=== PATIENT | female | born 1940 | race Asian ===

== ENCOUNTER 2018-09-28 13:10 | Inpatient (IN) | payer MEDICARE, OTHER ==
[2018-09-28 13:32] VITALS: BP 138/90
[2018-09-28] MEDS ORDERED: Magnesium Hydroxide (MOM) 30 mL UDC PO PRN (14:09)
[2018-09-28] MEDS ORDERED: Maalox 30 mL Cup PO PRN (14:09)
[2018-09-28 17:04] LABS: % BASOPHILS 1.1 % (0.0-2.0); % EOSINOPHILS 3.7 % (0.0-5.0); % LYMPHOCYTES 38.6 % (20.0-50.0); % MONOCYTES 11.2 % (2.0-10.0); % NEUTROPHILS 45.4 % (40.0-80.0); BASOPHILE ABSOLUTE 0.1 Th/cumm (0-0.2); EOSINOPHILE ABSOLUTE 0.2 Th/cmm (0.1-0.4); HEMOGLOBIN 14.3 gm/dL (12-16); MEAN CELL VOLUME 92.2 fl (81-100); MEAN CORPUSCULAR HEMOGLOBIN 31.3 pg (27.0-31.0); MONOCYTE ABSOLUTE 0.6 Th/cmm (0.3-1.0); NEUTROPHILE ABSOLUTE 2.3 Th/cmm (1.8-8.0); PLATELET COUNT 228 Th/cmm (150-400); RED BLOOD COUNT 4.55 Mil/cmm (3.80-5.20); RED CELL DISTRIBUTION WIDTH 13.1 % (11.5-20.0); WHITE BLOOD COUNT 5.2 Th/cmm (4.8-10.8)
[2018-09-28 17:55] LABS: ALB/GLOB RATIO 1.5 (1.0-1.8); ALBUMIN 4.6 gm/dL (3.7-5.3); ALKALINE PHOSPHATASE 70 U/L (34-104); ANION GAP 13.5 (7.0-16.0); BILIRUBIN,TOTAL 1.1 mg/dL (0.3-1.0); BUN - UREA NITROGEN 14 mg/dL (7-25); CALCIUM SERUM 9.7 mg/dL (8.6-10.3); CHLORIDE 99 mEq/L (98-107); CHOLESTEROL 182 mg/dL (<200); CREATININE - SERUM 0.9 mg/dL (0.6-1.2); GLUCOSE 100 mg/dL (70-105); HDL -HIGH DENSITY LIPOPROTEIN 68 mg/dL (23-92); POTASSIUM SERUM 3.5 mEq/L (3.5-5.1); SGOT 30 U/L (13-39); SGPT/ALT 11 U/L (7-52); SODIUM SERUM 136 mEq/L (136-145); TOTAL PROTEIN,SERUM 7.7 gm/dL (6.0-8.3); TRIGLYCERIDES 103 mg/dL (<150)
[2018-09-28] MEDS: Verapamil HCl SR 120 mg Tab PO SCH (20:34)
[2018-09-28] MEDS ORDERED: VERAPAMIL HCL 120 MG PO SCH ×2 (21:00)
[2018-09-29 06:06] LABS: A1C 5.9 % (4.8-5.6)
--- NOTE | 2018-09-29 08:06 | Diagnostic Imaging Report ---
CHEST X-RAY: AP view INDICATION: pain COMPARISON: None FINDINGS: Mild chronic changes are noted. There is no focal consolidation or pleural effusions The heart is normal in size. Mildly tortuous aorta is noted. Atherosclerosis is noted. Degenerative changes of the spine are noted. IMPRESSION: No focal consolidation identified. Mild chronic lung changes are noted. Tortuous aorta with atherosclerosis..
[2018-09-29] MEDS: Multivitamin Tab PO SCH (08:34)
[2018-09-29] MEDS: Pantoprazole 40 mg EC Tab PO SCH (08:35)
--- NOTE | 2018-09-29 16:12 | Consultation ---
DATE OF CONSULTATION: INTERNAL MEDICINE CONSULT REASON FOR CONSULT: Medical management, history of hyperlipidemia/essential HTN, CAD. HISTORY OF PRESENT ILLNESS: The patient is a 78-year-old [place] female who was admitted to [facility] with acute ETOH intoxication, ALOC and suicidal ideations. The patient tells me that she has had issues with her daughter for many years, given that she her father and apparently they been arguing for many years, and have had a falling out on/off for many years. They had a discussion recently, making the patient very frustrated. The patient reports having multiple mixed drinks and passing out. Eventually she was seen by ex- looking altered and voicing suicidal thoughts. Patient was transferred to to the above-mentioned facility where she was admitted for acute alcohol intoxication. Given her suicidal ideation, she has been transferred to this facility for further management and care. She denies any major medical problems except for hyperlipidemia, but per notes, she also has a history of essential hypertension, acid reflux disease and a previous [place]/CAD. She states that she is currently feeling well and that she does not belong here. PAST MEDICAL HISTORY: As noted above. PAST SURGICAL HISTORY: None reported. FAMILY HISTORY: Noncontributory. SOCIAL HISTORY: Previous smoker-for 40 years. She reports about a pack a day. Alcohol, she admits to social drinking and not binge drinking. ALLERGIES: NKDA. OUTPATIENT MEDICATIONS: Ambien 10 mg at bedtime, Neurontin 300 mg t.i.d., Protonix 40 mg daily, Carafate 1 gram q.i.d., Effexor XR 150 daily and verapamil 120 mg daily. REVIEW OF SYSTEMS: CONSTITUTIONAL: Denies any fever, chills, any recent weight loss. CARDIOVASCULAR: Currently, no chest pain, no anginal type symptomatology. PULMONARY: She denies any shortness of breath or any cough, but when asked if she has COPD she was not sure. GASTROINTESTINAL: No bowel habit changes. GENITOURINARY: No bladder habit changes. NEUROLOGIC: No changes in vision. No headaches. PHYSICAL EXAMINATION: VITAL SIGNS: Temperature 97.7, pulse 65, respirations 18, BP 116/70, satting 94-98% on room air. GENERAL: Well-developed, well-nourished female, awake, alert and oriented x 3, not in acute distress. HEAD AND NECK: Normocephalic, atraumatic. Pupils are reactive to light. Extraocular movements are intact. Oropharynx is moist and clear. NECK: There is no JVD or LAD. CARDIAC: Regular rate and rhythm without any murmurs. LUNGS: She has got diminished breath sounds bilaterally with inspiratory and expiratory wheezing. No audible rhonchi or crackles noted. ABDOMEN: Soft, supple, nontender, nondistended, normoactive bowel sounds. LOWER EXTREMITIES: No pedal edema. NEUROLOGIC: Grossly intact, nonfocal. LABORATORY DATA: CBC was essentially within normal limits. Chem-7 was within normal limits. LFTs were essentially within normal limits. DIAGNOSTICS: Chest x-ray done on admission shows no focal consolidations. Mild chronic lung changes are noted. Assessment: 1. Acute psychotic decompensation with suicidal ideations. 2. Acute alcohol intoxication with altered level of consciousness. 3. History of coronary artery disease. 4. History of hyperlipidemia. 5. History of essential hypertension. 6. Likely chronic obstructive pulmonary disease. 7. Longstanding history of nicotine dependence. PLAN: The patient has been admitted to [facility] for further management and care. The patient will be kept on her current medications as scheduled. I did offer pulmonary supportive or pulmonary toilet p.r.n., but at this time she states that she is doing well. We will follow up on a daily basis. JOB# [id number] JOEL
[2018-09-29] MEDS: Verapamil HCl SR 120 mg Tab PO SCH (20:38)
--- NOTE | 2018-09-30 02:22 | Psychiatric Evaluation ---
DATE OF SERVICE: 09/29/2018 JUSTIFICATION FOR HOSPITALIZATION: The patient brought in on a hold, danger to self. CHIEF COMPLAINT: "I said I wanted to ." HISTORY OF PRESENT ILLNESS: A 78-year-old female currently in the hospital with long history of major depressive disorder. The patient was apparently verbalizing suicidal ideations, noted to be tearful, upset, noting discord with daughter, noting she was really feeling very desperate because of what was going on between her and the daughter. The patient is oriented to name, place, situation, month, year, alluding to fair sleep, fair appetite, really upset about being in the hospital, really upset about what is going on with daughter. PAST PSYCHIATRIC HISTORY: No suicide attempts, however, apparently the patient later on in the interview told me that after tensions with daughter, she drank too much alcohol and took two Ambien tablets, which "I never do," was apparently more confused, that is when the called the police. The patient denies any previous suicidal overdose, however, has a long history of Effexor use. FAMILY HISTORY: Noncontributory. SOCIAL HISTORY: Born in [facility]. Currently second , two adult children. The patient is living in [place]. The patient spends days volunteering at the [employer]. She is generally social and not working formally. Denies any drugs. MENTAL STATUS EXAMINATION: Stated age. Fair eye contact. Speech is within normal limits. Mood upset. Affect upset. Thought processes were linear, status post an overdose effort. Apparently, was verbalizing SI. She overdosed on the Ambien in combination with alcohol. No HI. No psychosis. Insight and judgment diminished. Impulse control is poor. PROVISIONAL DIAGNOSIS: Major depression, recurrent, severe, no psychosis. Under medical, please see full H and P. ESTIMATED LENGTH OF STAY: 6-8 days. FUNCTIONAL IMPAIRMENTS: None noted. ASSESSMENT: The patient requiring hospitalization, concerns for safety suicide, suicidality. TREATMENT PLAN: Includes group as well as milieu therapy. CONDITIONS FOR DISCHARGE: Improved mood, improved affect, cessation of any SI. JOB# [id number]
[2018-09-30] MEDS: Multivitamin Tab PO SCH (08:15)
[2018-09-30] MEDS: Pantoprazole 40 mg EC Tab PO SCH (08:20)
--- NOTE | 2018-09-30 09:25 | Internal Medicine Prog Note ---
Internal Medicine Subjective - Subjective Service Date: 09/30/18 (comfortable) Patient seen and examined:: without staff Patient is:: awake Per staff patient has:: no adverse event Internal Medicine Objective - Results Result Diagrams: 09/28/18 16:05 09/28/18 16:05 Recent Labs: Laboratory Last Values WBC 5.2 Th/cmm (4.8-10.8) 09/28/18 16:05 RBC 4.55 Mil/cmm (3.80-5.20) 09/28/18 16:05 Hgb 14.3 gm/dL (12-16) 09/28/18 16:05 Hct 42.0 % (41.0-60) 09/28/18 16:05 MCV 92.2 fl (81-100) 09/28/18 16:05 MCH 31.3 pg (27.0-31.0) H 09/28/18 16:05 MCHC Differential 34.0 pg (28.0-36.0) 09/28/18 16:05 RDW 13.1 % (11.5-20.0) 09/28/18 16:05 Plt Count 228 Th/cmm (150-400) 09/28/18 16:05 MPV 6.7 fl 09/28/18 16:05 Neutrophils % 45.4 % (40.0-80.0) 09/28/18 16:05 Lymphocytes % 38.6 % (20.0-50.0) 09/28/18 16:05 Monocytes % 11.2 % (2.0-10.0) H 09/28/18 16:05 Eosinophils % 3.7 % (0.0-5.0) 09/28/18 16:05 Basophils % 1.1 % (0.0-2.0) 09/28/18 16:05 Sodium 136 mEq/L (136-145) 09/28/18 16:05 Potassium 3.5 mEq/L (3.5-5.1) 09/28/18 16:05 Chloride 99 mEq/L (98-107) 09/28/18 16:05 Carbon Dioxide 27.0 mEq/L (21.0-31.0) 09/28/18 16:05 Anion Gap 13.5 (7.0-16.0) 09/28/18 16:05 BUN 14 mg/dL (7-25) 09/28/18 16:05 Creatinine 0.9 mg/dL (0.6-1.2) 09/28/18 16:05 Est GFR ( Amer) TNP 09/28/18 16:05 Est GFR (Non-Af Amer) TNP 09/28/18 16:05 BUN/Creatinine Ratio 15.6 09/28/18 16:05 Glucose 100 mg/dL (70-105) 09/28/18 16:05 Calcium 9.7 mg/dL (8.6-10.3) 09/28/18 16:05 Total Bilirubin 1.1 mg/dL (0.3-1.0) H 09/28/18 16:05 AST 30 U/L (13-39) 09/28/18 16:05 ALT 11 U/L (7-52) 09/28/18 16:05 Alkaline Phosphatase 70 U/L (34-104) 09/28/18 16:05 Total Protein 7.7 gm/dL (6.0-8.3) 09/28/18 16:05 Albumin 4.6 gm/dL (3.7-5.3) 09/28/18 16:05 Globulin 3.1 gm/dL 09/28/18 16:05 Albumin/Globulin Ratio 1.5 (1.0-1.8) 09/28/18 16:05 Triglycerides 103 mg/dL (<150) 09/28/18 16:05 Cholesterol 182 mg/dL (<200) 09/28/18 16:05 LDL Cholesterol Direct 89 mg/dL (75-193) 09/28/18 16:05 HDL Cholesterol 68 mg/dL (23-92) 09/28/18 16:05 - Physical Exam Vitals and I&O: Vital Signs Temp 97.5 F 09/30/18 05:57 Pulse 59 09/30/18 05:57 Resp 20 09/30/18 05:57 BP 102/58 09/30/18 05:57 Pulse Ox 98 09/30/18 05:57 Intake & Output 09/29/18 09/30/18 09/30/18 18:59 06:59 18:59 Intake Total 1200 300 Balance 1200 300 Intake: Oral 1200 300 Other: # Voids 4 2 # Bowel Movements 0 0 Active Medications: Current Medications Acetaminophen (Tylenol) 650 mg PO Q4HR PRN PRN Reason: Mild Pain / Temp above 100 Stop: 11/27/18 14:08 Al Hydrox/Mg Hydrox/Simethicone (Maalox) 30 ml PO Q4HR PRN PRN Reason: GI DISTRESS Stop: 11/27/18 14:08 Gabapentin (Neurontin) 300 mg PO TID LEONEL Stop: 11/27/18 20:59 Last Admin: 09/30/18 08:15 Dose: 300 mg Lidocaine HCl (Xylocaine Viscous 2%) 5 ml PO QID PRN PRN Reason: Mouth Sore Pain Stop: 11/27/18 15:40 Lorazepam (Ativan) 0.5 mg PO Q4HR PRN; Protocol PRN Reason: Anxiety Stop: 10/28/18 14:08 Magnesium Hydroxide (Milk Of Magnesia) 30 ml PO HS PRN PRN Reason: Constipation Multivitamins/Vitamin C (Theragran) 1 tab PO DAILY LEONEL Stop: 11/28/18 08:59 Last Admin: 09/30/18 08:15 Dose: 1 tab Pantoprazole Sodium (Protonix) 40 mg PO DAILY LEONEL Stop: 11/28/18 08:59 Last Admin: 09/30/18 08:20 Dose: 40 mg Sucralfate (Carafate) 1 gm PO QID LEONEL Stop: 11/27/18 16:59 Last Admin: 09/30/18 08:15 Dose: 1 gm Venlafaxine HCl (Effexor Xr) 150 mg PO DAILY [facility]; Protocol Stop: 11/28/18 08:59 Last Admin: 09/30/18 08:16 Dose: 150 mg Verapamil HCl (Calan Sr) 120 mg PO HS LEONEL Stop: 11/27/18 20:59 Last Admin: 09/29/18 20:38 Dose: 120 mg Zolpidem Tartrate (Ambien) 5 mg PO HS PRN PRN Reason: Insomnia Stop: 11/27/18 14:08 Last Admin: 09/29/18 20:39 Dose: 5 mg General: alert HEENT: NC/AT, PERRLA, EOMI Neck: Supple, No JVD, No thyromegaly, No LAD Lungs: wheezing, other (decreased at bases) Cardiovascular: RRR, Normal S1, Normal S2, without murmur Abdomen: soft, non-tender, positive bowel sound Extremities: clear Neurological: no change Internal Medicine Assmt/Plan - Assessment Assessment: ACUTE PSYCH DECOMPENSATION WITH SI ACUTE ETOH INTOXICATION-stable, with no s/sx of withdrawals. HISTORY OF HTN HISTORY OF HYPERCHOLESTEROLEMIA HISTORY OF CAD HISTORY OF NICOTINE DEPENDENCE HISTORY OF NICOTINE DEPENDENCE - Plan Plan: CONT WITH CURRENT YUMIKO-PSYCH SUPPORTIVE CARE CONT WITH OTHER MEDS SCHEDULED
[2018-09-30] MEDS: Verapamil HCl SR 120 mg Tab PO SCH (20:27)
--- NOTE | 2018-10-01 00:15 | Progress Notes ---
DATE: 09/30/2018 SUBJECTIVE: The patient is currently in the hospital, long history of depression, fleeting suicidal thoughts in the past, here because of suicidal ideations, discord with daughter, tension with daughter. The patient withdrawn, still depressed, melancholic appearing. She is noting she is feeling somewhat better and more optimistic, well oriented, linear, wants to go home, concerned about her , he is 86. The patient is still upset with daughter, trying to better things with the daughter, but not sure about what will happen. Fair sleep, fair appetite. PLAN: We will continue to monitor. The patient is doing fairly well currently on dosing of Effexor. JOB# [id number]
[2018-10-01] MEDS: Pantoprazole 40 mg EC Tab PO SCH (08:44)
[2018-10-01] MEDS: Multivitamin Tab PO SCH (08:44)
--- NOTE | 2018-10-01 12:13 | Internal Medicine Prog Note ---
Internal Medicine Subjective - Subjective Service Date: 10/01/18 (comfortable) Patient seen and examined:: without staff Patient is:: awake Per staff patient has:: no adverse event Internal Medicine Objective - Results Result Diagrams: 09/28/18 16:05 09/28/18 16:05 Recent Labs: Laboratory Last Values WBC 5.2 Th/cmm (4.8-10.8) 09/28/18 16:05 RBC 4.55 Mil/cmm (3.80-5.20) 09/28/18 16:05 Hgb 14.3 gm/dL (12-16) 09/28/18 16:05 Hct 42.0 % (41.0-60) 09/28/18 16:05 MCV 92.2 fl (81-100) 09/28/18 16:05 MCH 31.3 pg (27.0-31.0) H 09/28/18 16:05 MCHC Differential 34.0 pg (28.0-36.0) 09/28/18 16:05 RDW 13.1 % (11.5-20.0) 09/28/18 16:05 Plt Count 228 Th/cmm (150-400) 09/28/18 16:05 MPV 6.7 fl 09/28/18 16:05 Neutrophils % 45.4 % (40.0-80.0) 09/28/18 16:05 Lymphocytes % 38.6 % (20.0-50.0) 09/28/18 16:05 Monocytes % 11.2 % (2.0-10.0) H 09/28/18 16:05 Eosinophils % 3.7 % (0.0-5.0) 09/28/18 16:05 Basophils % 1.1 % (0.0-2.0) 09/28/18 16:05 Sodium 136 mEq/L (136-145) 09/28/18 16:05 Potassium 3.5 mEq/L (3.5-5.1) 09/28/18 16:05 Chloride 99 mEq/L (98-107) 09/28/18 16:05 Carbon Dioxide 27.0 mEq/L (21.0-31.0) 09/28/18 16:05 Anion Gap 13.5 (7.0-16.0) 09/28/18 16:05 BUN 14 mg/dL (7-25) 09/28/18 16:05 Creatinine 0.9 mg/dL (0.6-1.2) 09/28/18 16:05 Est GFR ( Amer) TNP 09/28/18 16:05 Est GFR (Non-Af Amer) TNP 09/28/18 16:05 BUN/Creatinine Ratio 15.6 09/28/18 16:05 Glucose 100 mg/dL (70-105) 09/28/18 16:05 Calcium 9.7 mg/dL (8.6-10.3) 09/28/18 16:05 Total Bilirubin 1.1 mg/dL (0.3-1.0) H 09/28/18 16:05 AST 30 U/L (13-39) 09/28/18 16:05 ALT 11 U/L (7-52) 09/28/18 16:05 Alkaline Phosphatase 70 U/L (34-104) 09/28/18 16:05 Total Protein 7.7 gm/dL (6.0-8.3) 09/28/18 16:05 Albumin 4.6 gm/dL (3.7-5.3) 09/28/18 16:05 Globulin 3.1 gm/dL 09/28/18 16:05 Albumin/Globulin Ratio 1.5 (1.0-1.8) 09/28/18 16:05 Triglycerides 103 mg/dL (<150) 09/28/18 16:05 Cholesterol 182 mg/dL (<200) 09/28/18 16:05 LDL Cholesterol Direct 89 mg/dL (75-193) 09/28/18 16:05 HDL Cholesterol 68 mg/dL (23-92) 09/28/18 16:05 - Physical Exam Vitals and I&O: Vital Signs Temp 98 F 10/01/18 06:18 Pulse 71 10/01/18 06:18 Resp 19 10/01/18 06:18 BP 119/65 10/01/18 06:18 Pulse Ox 98 10/01/18 06:18 Intake & Output 09/30/18 10/01/18 10/01/18 18:59 06:59 18:59 Intake Total 120 Balance 120 Intake: Oral 120 Other: # Voids 2 Stool Characteristics Soft Soft Active Medications: Current Medications Acetaminophen (Tylenol) 650 mg PO Q4HR PRN PRN Reason: Mild Pain / Temp above 100 Stop: 11/27/18 14:08 Al Hydrox/Mg Hydrox/Simethicone (Maalox) 30 ml PO Q4HR PRN PRN Reason: GI DISTRESS Stop: 11/27/18 14:08 Gabapentin (Neurontin) 300 mg PO TID LEONEL Stop: 11/27/18 20:59 Last Admin: 10/01/18 08:44 Dose: 300 mg Lidocaine HCl (Xylocaine Viscous 2%) 5 ml PO QID PRN PRN Reason: Mouth Sore Pain Stop: 11/27/18 15:40 Lorazepam (Ativan) 0.5 mg PO Q4HR PRN; Protocol PRN Reason: Anxiety Stop: 10/28/18 14:08 Magnesium Hydroxide (Milk Of Magnesia) 30 ml PO HS PRN PRN Reason: Constipation Multivitamins/Vitamin C (Theragran) 1 tab PO DAILY LEONEL Stop: 11/28/18 08:59 Last Admin: 10/01/18 08:44 Dose: 1 tab Pantoprazole Sodium (Protonix) 40 mg PO DAILY LEONEL Stop: 11/28/18 08:59 Last Admin: 10/01/18 08:44 Dose: 40 mg Sucralfate (Carafate) 1 gm PO QID LEONEL Stop: 11/27/18 16:59 Last Admin: 10/01/18 08:44 Dose: 1 gm Venlafaxine HCl (Effexor Xr) 150 mg PO DAILY LEONEL; Protocol Stop: 11/28/18 08:59 Last Admin: 10/01/18 08:44 Dose: 150 mg Verapamil HCl (Calan Sr) 120 mg PO HS LEONEL Stop: 11/27/18 20:59 Last Admin: 09/30/18 20:27 Dose: 120 mg Zolpidem Tartrate (Ambien) 5 mg PO HS PRN PRN Reason: Insomnia Stop: 11/27/18 14:08 Last Admin: 10/01/18 00:47 Dose: 5 mg General: alert HEENT: NC/AT, PERRLA, EOMI Neck: Supple, No JVD, No thyromegaly, No LAD Lungs: wheezing, other (decreased at bases) Cardiovascular: RRR, Normal S1, Normal S2, without murmur Abdomen: soft, non-tender, positive bowel sound Extremities: clear Neurological: no change Internal Medicine Assmt/Plan - Assessment Assessment: ACUTE PSYCH DECOMPENSATION WITH SI ACUTE ETOH INTOXICATION-stable, with no s/sx of withdrawals. HISTORY OF HTN HISTORY OF HYPERCHOLESTEROLEMIA HISTORY OF CAD HISTORY OF NICOTINE DEPENDENCE HISTORY OF NICOTINE DEPENDENCE - Plan Plan: CONT WITH CURRENT YUMIKO-PSYCH SUPPORTIVE CARE CONT WITH OTHER MEDS SCHEDULED
[2018-10-01] MEDS: Verapamil HCl SR 120 mg Tab PO SCH ×2 (20:52→20:54)
--- NOTE | 2018-10-01 21:27 | Progress Notes ---
DATE: 10/01/2018 SUBJECTIVE: A 78-year-old female currently in the hospital, noted severe tearful, crying today, feels that she has disappointed her family, status post an overdose effort, concerns about the suicide effort, mostly withdrawn, keeps to self, angry, upset, fair sleep, and fair appetite. ASSESSMENT: The patient remains symptomatic. Ongoing safety concerns given ongoing mood symptoms, tearfulness, melancholy, and social withdrawal. On a positive note, good family support. We will continue to monitor err on the side of caution and initiate a 14-day hold. [facility]# [id number]
[2018-10-02] MEDS: Multivitamin Tab PO SCH (10:12)
[2018-10-02] MEDS: Pantoprazole 40 mg EC Tab PO SCH (10:13)
--- NOTE | 2018-10-02 18:32 | Progress Notes ---
DATE: 10/02/2018 The patient remains withdrawn, mostly melancholic, depressed appearing, status post an overdose. Concerns there was a suicide effort, mostly keeping to herself, anxious. She has improving. Thoughts of self-harm dissipating, decreasing. We will continue to monitor on an inpatient basis. She is currently on a 14-day hold. Currently on dosing of Effexor, seems to be tolerating well. She is noting that her family is supportive. [facility]# [id number]
[2018-10-02] MEDS: Verapamil HCl SR 120 mg Tab PO SCH (21:29)
--- NOTE | 2018-10-02 23:57 | Internal Medicine Prog Note ---
Internal Medicine Subjective - Subjective Service Date: 10/02/18 (no events) Patient is:: awake Per staff patient has:: no adverse event Internal Medicine Objective - Results Result Diagrams: 09/28/18 16:05 09/28/18 16:05 Recent Labs: Laboratory Last Values WBC 5.2 Th/cmm (4.8-10.8) 09/28/18 16:05 RBC 4.55 Mil/cmm (3.80-5.20) 09/28/18 16:05 Hgb 14.3 gm/dL (12-16) 09/28/18 16:05 Hct 42.0 % (41.0-60) 09/28/18 16:05 MCV 92.2 fl (81-100) 09/28/18 16:05 MCH 31.3 pg (27.0-31.0) H 09/28/18 16:05 MCHC Differential 34.0 pg (28.0-36.0) 09/28/18 16:05 RDW 13.1 % (11.5-20.0) 09/28/18 16:05 Plt Count 228 Th/cmm (150-400) 09/28/18 16:05 MPV 6.7 fl 09/28/18 16:05 Neutrophils % 45.4 % (40.0-80.0) 09/28/18 16:05 Lymphocytes % 38.6 % (20.0-50.0) 09/28/18 16:05 Monocytes % 11.2 % (2.0-10.0) H 09/28/18 16:05 Eosinophils % 3.7 % (0.0-5.0) 09/28/18 16:05 Basophils % 1.1 % (0.0-2.0) 09/28/18 16:05 Sodium 136 mEq/L (136-145) 09/28/18 16:05 Potassium 3.5 mEq/L (3.5-5.1) 09/28/18 16:05 Chloride 99 mEq/L (98-107) 09/28/18 16:05 Carbon Dioxide 27.0 mEq/L (21.0-31.0) 09/28/18 16:05 Anion Gap 13.5 (7.0-16.0) 09/28/18 16:05 BUN 14 mg/dL (7-25) 09/28/18 16:05 Creatinine 0.9 mg/dL (0.6-1.2) 09/28/18 16:05 Est GFR ( Amer) TNP 09/28/18 16:05 Est GFR (Non-Af Amer) TNP 09/28/18 16:05 BUN/Creatinine Ratio 15.6 09/28/18 16:05 Glucose 100 mg/dL (70-105) 09/28/18 16:05 Calcium 9.7 mg/dL (8.6-10.3) 09/28/18 16:05 Total Bilirubin 1.1 mg/dL (0.3-1.0) H 09/28/18 16:05 AST 30 U/L (13-39) 09/28/18 16:05 ALT 11 U/L (7-52) 09/28/18 16:05 Alkaline Phosphatase 70 U/L (34-104) 09/28/18 16:05 Total Protein 7.7 gm/dL (6.0-8.3) 09/28/18 16:05 Albumin 4.6 gm/dL (3.7-5.3) 09/28/18 16:05 Globulin 3.1 gm/dL 09/28/18 16:05 Albumin/Globulin Ratio 1.5 (1.0-1.8) 09/28/18 16:05 Triglycerides 103 mg/dL (<150) 09/28/18 16:05 Cholesterol 182 mg/dL (<200) 09/28/18 16:05 LDL Cholesterol Direct 89 mg/dL (75-193) 09/28/18 16:05 HDL Cholesterol 68 mg/dL (23-92) 09/28/18 16:05 - Physical Exam Vitals and I&O: Vital Signs Temp 97.4 F 10/02/18 20:26 Pulse 68 10/02/18 21:29 Resp 19 10/02/18 20:26 BP 120/76 10/02/18 21:29 Pulse Ox 96 10/02/18 20:26 Intake & Output 10/02/18 10/02/18 10/03/18 06:59 18:59 06:59 Intake Total 360 1080 Balance 360 1080 Intake: Oral 360 1080 Other: # Voids 3 4 # Bowel Movements 0 0 Active Medications: Current Medications Acetaminophen (Tylenol) 650 mg PO Q4HR PRN PRN Reason: Mild Pain / Temp above 100 Stop: 11/27/18 14:08 Al Hydrox/Mg Hydrox/Simethicone (Maalox) 30 ml PO Q4HR PRN PRN Reason: GI DISTRESS Stop: 11/27/18 14:08 Gabapentin (Neurontin) 300 mg PO TID LEONEL Stop: 11/27/18 20:59 Last Admin: 10/02/18 21:28 Dose: 300 mg Lidocaine HCl (Xylocaine Viscous 2%) 5 ml PO QID PRN PRN Reason: Mouth Sore Pain Stop: 11/27/18 15:40 Lorazepam (Ativan) 0.5 mg PO Q4HR PRN; Protocol PRN Reason: Anxiety Stop: 10/28/18 14:08 Last Admin: 10/02/18 17:54 Dose: 0.5 mg Magnesium Hydroxide (Milk Of Magnesia) 30 ml PO HS PRN PRN Reason: Constipation Multivitamins/Vitamin C (Theragran) 1 tab PO DAILY LEONEL Stop: 11/28/18 08:59 Last Admin: 10/02/18 10:12 Dose: 1 tab Pantoprazole Sodium (Protonix) 40 mg PO DAILY LEONEL Stop: 11/28/18 08:59 Last Admin: 10/02/18 10:13 Dose: 40 mg Sucralfate (Carafate) 1 gm PO QID LEONEL Stop: 11/27/18 16:59 Last Admin: 10/02/18 21:28 Dose: 1 gm Venlafaxine HCl (Effexor Xr) 150 mg PO DAILY LEONEL; Protocol Stop: 11/28/18 08:59 Last Admin: 10/02/18 10:12 Dose: 150 mg Verapamil HCl (Calan Sr) 120 mg PO HS LEONEL Stop: 11/27/18 20:59 Last Admin: 10/02/18 21:29 Dose: 120 mg Zolpidem Tartrate (Ambien) 5 mg PO HS PRN PRN Reason: Insomnia Stop: 11/27/18 14:08 Last Admin: 10/02/18 21:28 Dose: 5 mg General: alert HEENT: NC/AT, PERRLA, EOMI Neck: Supple, No JVD, No thyromegaly, No LAD Lungs: wheezing, other (decreased at bases) Cardiovascular: RRR, Normal S1, Normal S2, without murmur Abdomen: soft, non-tender, positive bowel sound Extremities: clear Neurological: no change Internal Medicine Assmt/Plan - Assessment Assessment: ACUTE PSYCH DECOMPENSATION WITH SI ACUTE ETOH INTOXICATION-stable, with no s/sx of withdrawals. HISTORY OF HTN HISTORY OF HYPERCHOLESTEROLEMIA HISTORY OF CAD HISTORY OF NICOTINE DEPENDENCE HISTORY OF NICOTINE DEPENDENCE - Plan Plan: CONT WITH CURRENT YUMIKO-PSYCH SUPPORTIVE CARE CONT WITH OTHER MEDS SCHEDULED
--- NOTE | 2018-10-03 07:07 | Progress Notes ---
DATE: 10/03/2018 SUBJECTIVE: The patient admitted to the hospital, seems to be showing signs of improvement, calmer, friendly, more cooperative, stating that she does not want to hurt herself and recognizes that what she did was not a good choice. Better coping. Stating that she is feeling "better," more optimistic, misses her family. ASSESSMENT: The patient is showing signs of improvement. We will monitor her for further 24 hours. [facility]# [id number]
[2018-10-03] MEDS: Multivitamin Tab PO SCH (09:00)
[2018-10-03] MEDS: Pantoprazole 40 mg EC Tab PO SCH (09:00)
[2018-10-03] MEDS: Verapamil HCl SR 120 mg Tab PO SCH (20:43)
[2018-10-04] MEDS: Pantoprazole 40 mg EC Tab PO SCH (08:23)
[2018-10-04] MEDS: Multivitamin Tab PO SCH (08:23)
--- NOTE | 2018-10-04 11:45 | Progress Notes ---
DATE: 10/04/2018 SUBJECTIVE: The patient in the hospital, angry, upset, still noted to be irritable. She is, however, denying any overt SI and does not want to hurt self. We do not have any followup today. Manager Video is hoping to get followup tomorrow with therapists in her area as to make sure that she has some services in place. Medications were noted. Fair sleep, fair appetite, mostly keeps to self. PLAN: We will continue to monitor for further 24 hours to make sure the patient does have some followup services. JOB# [id number]
[2018-10-04] MEDS: Verapamil HCl SR 120 mg Tab PO SCH (20:29)
--- NOTE | 2018-10-04 22:18 | Internal Medicine Prog Note ---
Internal Medicine Subjective - Subjective Service Date: 10/04/18 (no distress) Patient is:: awake Per staff patient has:: no adverse event Internal Medicine Objective - Results Result Diagrams: 09/28/18 16:05 09/28/18 16:05 Recent Labs: Laboratory Last Values WBC 5.2 Th/cmm (4.8-10.8) 09/28/18 16:05 RBC 4.55 Mil/cmm (3.80-5.20) 09/28/18 16:05 Hgb 14.3 gm/dL (12-16) 09/28/18 16:05 Hct 42.0 % (41.0-60) 09/28/18 16:05 MCV 92.2 fl (81-100) 09/28/18 16:05 MCH 31.3 pg (27.0-31.0) H 09/28/18 16:05 MCHC Differential 34.0 pg (28.0-36.0) 09/28/18 16:05 RDW 13.1 % (11.5-20.0) 09/28/18 16:05 Plt Count 228 Th/cmm (150-400) 09/28/18 16:05 MPV 6.7 fl 09/28/18 16:05 Neutrophils % 45.4 % (40.0-80.0) 09/28/18 16:05 Lymphocytes % 38.6 % (20.0-50.0) 09/28/18 16:05 Monocytes % 11.2 % (2.0-10.0) H 09/28/18 16:05 Eosinophils % 3.7 % (0.0-5.0) 09/28/18 16:05 Basophils % 1.1 % (0.0-2.0) 09/28/18 16:05 Sodium 136 mEq/L (136-145) 09/28/18 16:05 Potassium 3.5 mEq/L (3.5-5.1) 09/28/18 16:05 Chloride 99 mEq/L (98-107) 09/28/18 16:05 Carbon Dioxide 27.0 mEq/L (21.0-31.0) 09/28/18 16:05 Anion Gap 13.5 (7.0-16.0) 09/28/18 16:05 BUN 14 mg/dL (7-25) 09/28/18 16:05 Creatinine 0.9 mg/dL (0.6-1.2) 09/28/18 16:05 Est GFR ( Amer) TNP 09/28/18 16:05 Est GFR (Non-Af Amer) TNP 09/28/18 16:05 BUN/Creatinine Ratio 15.6 09/28/18 16:05 Glucose 100 mg/dL (70-105) 09/28/18 16:05 Calcium 9.7 mg/dL (8.6-10.3) 09/28/18 16:05 Total Bilirubin 1.1 mg/dL (0.3-1.0) H 09/28/18 16:05 AST 30 U/L (13-39) 09/28/18 16:05 ALT 11 U/L (7-52) 09/28/18 16:05 Alkaline Phosphatase 70 U/L (34-104) 09/28/18 16:05 Total Protein 7.7 gm/dL (6.0-8.3) 09/28/18 16:05 Albumin 4.6 gm/dL (3.7-5.3) 09/28/18 16:05 Globulin 3.1 gm/dL 09/28/18 16:05 Albumin/Globulin Ratio 1.5 (1.0-1.8) 09/28/18 16:05 Triglycerides 103 mg/dL (<150) 09/28/18 16:05 Cholesterol 182 mg/dL (<200) 09/28/18 16:05 LDL Cholesterol Direct 89 mg/dL (75-193) 09/28/18 16:05 HDL Cholesterol 68 mg/dL (23-92) 09/28/18 16:05 - Physical Exam Vitals and I&O: Vital Signs Temp 99.1 F 10/04/18 20:27 Pulse 79 10/04/18 20:29 Resp 20 10/04/18 20:27 BP 109/70 10/04/18 20:29 Pulse Ox 97 10/04/18 20:27 Intake & Output 10/04/18 10/04/18 10/05/18 06:59 18:59 06:59 Intake Total 120 1600 240 Balance 120 1600 240 Intake: Oral 120 1600 240 Other: # Voids 2 4 2 # Bowel Movements 0 0 Active Medications: Current Medications Acetaminophen (Tylenol) 650 mg PO Q4HR PRN PRN Reason: Mild Pain / Temp above 100 Stop: 11/27/18 14:08 Al Hydrox/Mg Hydrox/Simethicone (Maalox) 30 ml PO Q4HR PRN PRN Reason: GI DISTRESS Stop: 11/27/18 14:08 Gabapentin (Neurontin) 300 mg PO TID LEONEL Stop: 11/27/18 20:59 Last Admin: 10/04/18 20:28 Dose: 300 mg Lidocaine HCl (Xylocaine Viscous 2%) 5 ml PO QID PRN PRN Reason: Mouth Sore Pain Stop: 11/27/18 15:40 Lorazepam (Ativan) 0.5 mg PO Q4HR PRN; Protocol PRN Reason: Anxiety Stop: 10/28/18 14:08 Last Admin: 10/02/18 17:54 Dose: 0.5 mg Magnesium Hydroxide (Milk Of Magnesia) 30 ml PO HS PRN PRN Reason: Constipation Multivitamins/Vitamin C (Theragran) 1 tab PO DAILY LEONEL Stop: 11/28/18 08:59 Last Admin: 10/04/18 08:23 Dose: 1 tab Pantoprazole Sodium (Protonix) 40 mg PO DAILY LEONEL Stop: 11/28/18 08:59 Last Admin: 10/04/18 08:23 Dose: Not Given Sucralfate (Carafate) 1 gm PO QID LEONEL Stop: 11/27/18 16:59 Last Admin: 10/04/18 20:28 Dose: 1 gm Venlafaxine HCl (Effexor Xr) 150 mg PO DAILY LEONEL; Protocol Stop: 11/28/18 08:59 Last Admin: 10/04/18 08:23 Dose: 150 mg Verapamil HCl (Calan Sr) 120 mg PO HS LEONEL Stop: 11/27/18 20:59 Last Admin: 10/04/18 20:29 Dose: Not Given Zolpidem Tartrate (Ambien) 5 mg PO HS PRN PRN Reason: Insomnia Stop: 11/27/18 14:08 Last Admin: 10/04/18 00:40 Dose: 5 mg General: alert HEENT: NC/AT, PERRLA, EOMI Neck: Supple, No JVD, No thyromegaly, No LAD Lungs: wheezing, other (decreased at bases) Cardiovascular: RRR, Normal S1, Normal S2, without murmur Abdomen: soft, non-tender, positive bowel sound Extremities: clear Neurological: no change Internal Medicine Assmt/Plan - Assessment Assessment: ACUTE PSYCH DECOMPENSATION WITH SI ACUTE ETOH INTOXICATION-stable, with no s/sx of withdrawals. HISTORY OF HTN HISTORY OF HYPERCHOLESTEROLEMIA HISTORY OF CAD HISTORY OF NICOTINE DEPENDENCE - Plan Plan: CONT WITH CURRENT [facility] SUPPORTIVE CARE CONT WITH OTHER MEDS SCHEDULED
--- NOTE | 2018-10-05 09:08 | Internal Medicine Prog Note ---
Internal Medicine Subjective - Subjective Service Date: 10/05/18 (comfortable) Patient seen and examined:: without staff Patient is:: awake Per staff patient has:: no adverse event Internal Medicine Objective - Results Result Diagrams: 09/28/18 16:05 09/28/18 16:05 Recent Labs: Laboratory Last Values WBC 5.2 Th/cmm (4.8-10.8) 09/28/18 16:05 RBC 4.55 Mil/cmm (3.80-5.20) 09/28/18 16:05 Hgb 14.3 gm/dL (12-16) 09/28/18 16:05 Hct 42.0 % (41.0-60) 09/28/18 16:05 MCV 92.2 fl (81-100) 09/28/18 16:05 MCH 31.3 pg (27.0-31.0) H 09/28/18 16:05 MCHC Differential 34.0 pg (28.0-36.0) 09/28/18 16:05 RDW 13.1 % (11.5-20.0) 09/28/18 16:05 Plt Count 228 Th/cmm (150-400) 09/28/18 16:05 MPV 6.7 fl 09/28/18 16:05 Neutrophils % 45.4 % (40.0-80.0) 09/28/18 16:05 Lymphocytes % 38.6 % (20.0-50.0) 09/28/18 16:05 Monocytes % 11.2 % (2.0-10.0) H 09/28/18 16:05 Eosinophils % 3.7 % (0.0-5.0) 09/28/18 16:05 Basophils % 1.1 % (0.0-2.0) 09/28/18 16:05 Sodium 136 mEq/L (136-145) 09/28/18 16:05 Potassium 3.5 mEq/L (3.5-5.1) 09/28/18 16:05 Chloride 99 mEq/L (98-107) 09/28/18 16:05 Carbon Dioxide 27.0 mEq/L (21.0-31.0) 09/28/18 16:05 Anion Gap 13.5 (7.0-16.0) 09/28/18 16:05 BUN 14 mg/dL (7-25) 09/28/18 16:05 Creatinine 0.9 mg/dL (0.6-1.2) 09/28/18 16:05 Est GFR ( Amer) TNP 09/28/18 16:05 Est GFR (Non-Af Amer) TNP 09/28/18 16:05 BUN/Creatinine Ratio 15.6 09/28/18 16:05 Glucose 100 mg/dL (70-105) 09/28/18 16:05 Calcium 9.7 mg/dL (8.6-10.3) 09/28/18 16:05 Total Bilirubin 1.1 mg/dL (0.3-1.0) H 09/28/18 16:05 AST 30 U/L (13-39) 09/28/18 16:05 ALT 11 U/L (7-52) 09/28/18 16:05 Alkaline Phosphatase 70 U/L (34-104) 09/28/18 16:05 Total Protein 7.7 gm/dL (6.0-8.3) 09/28/18 16:05 Albumin 4.6 gm/dL (3.7-5.3) 09/28/18 16:05 Globulin 3.1 gm/dL 09/28/18 16:05 Albumin/Globulin Ratio 1.5 (1.0-1.8) 09/28/18 16:05 Triglycerides 103 mg/dL (<150) 09/28/18 16:05 Cholesterol 182 mg/dL (<200) 09/28/18 16:05 LDL Cholesterol Direct 89 mg/dL (75-193) 09/28/18 16:05 HDL Cholesterol 68 mg/dL (23-92) 09/28/18 16:05 - Physical Exam Vitals and I&O: Vital Signs Temp 97.6 F 10/05/18 06:35 Pulse 66 10/05/18 07:47 Resp 18 10/05/18 08:00 BP 108/64 10/05/18 07:47 Pulse Ox 97 10/05/18 06:35 Intake & Output 10/04/18 10/05/18 10/05/18 18:59 06:59 18:59 Intake Total 1600 240 Balance 1600 240 Intake: Oral 1600 240 Other: # Voids 4 1 # Bowel Movements 0 0 Active Medications: Current Medications Acetaminophen (Tylenol) 650 mg PO Q4HR PRN PRN Reason: Mild Pain / Temp above 100 Stop: 11/27/18 14:08 Al Hydrox/Mg Hydrox/Simethicone (Maalox) 30 ml PO Q4HR PRN PRN Reason: GI DISTRESS Stop: 11/27/18 14:08 Gabapentin (Neurontin) 300 mg PO TID LEONEL Stop: 11/27/18 20:59 Last Admin: 10/04/18 20:28 Dose: 300 mg Lidocaine HCl (Xylocaine Viscous 2%) 5 ml PO QID PRN PRN Reason: Mouth Sore Pain Stop: 11/27/18 15:40 Lorazepam (Ativan) 0.5 mg PO Q4HR PRN; Protocol PRN Reason: Anxiety Stop: 10/28/18 14:08 Last Admin: 10/02/18 17:54 Dose: 0.5 mg Magnesium Hydroxide (Milk Of Magnesia) 30 ml PO HS PRN PRN Reason: Constipation Multivitamins/Vitamin C (Theragran) 1 tab PO DAILY LEONEL Stop: 11/28/18 08:59 Last Admin: 10/04/18 08:23 Dose: 1 tab Pantoprazole Sodium (Protonix) 40 mg PO DAILY LEONEL Stop: 11/28/18 08:59 Last Admin: 10/04/18 08:23 Dose: Not Given Sucralfate (Carafate) 1 gm PO QID LEONEL Stop: 11/27/18 16:59 Last Admin: 10/04/18 20:28 Dose: 1 gm Venlafaxine HCl (Effexor Xr) 150 mg PO DAILY LEONEL; Protocol Stop: 11/28/18 08:59 Last Admin: 10/04/18 08:23 Dose: 150 mg Verapamil HCl (Calan Sr) 120 mg PO HS LEONEL Stop: 11/27/18 20:59 Last Admin: 10/04/18 20:29 Dose: Not Given Zolpidem Tartrate (Ambien) 5 mg PO HS PRN PRN Reason: Insomnia Stop: 11/27/18 14:08 Last Admin: 10/04/18 23:04 Dose: 5 mg General: alert HEENT: NC/AT, PERRLA, EOMI Neck: Supple, No JVD, No thyromegaly, No LAD Lungs: wheezing, other (decreased at bases) Cardiovascular: RRR, Normal S1, Normal S2, without murmur Abdomen: soft, non-tender, positive bowel sound Extremities: clear Neurological: no change Internal Medicine Assmt/Plan - Assessment Assessment: ACUTE PSYCH DECOMPENSATION WITH SI ACUTE ETOH INTOXICATION-stable, with no s/sx of withdrawals. HISTORY OF HTN HISTORY OF HYPERCHOLESTEROLEMIA HISTORY OF CAD HISTORY OF NICOTINE DEPENDENCE - Plan Plan: CONT WITH CURRENT [facility] SUPPORTIVE CARE CONT WITH OTHER MEDS SCHEDULED
[2018-10-05] MEDS: Pantoprazole 40 mg EC Tab PO SCH (09:14)
[2018-10-05] MEDS: Multivitamin Tab PO SCH (09:15)
--- NOTE | 2018-10-05 15:57 | Discharge Summary ---
DATE OF DISCHARGE: 10/05/2018 JUSTIFICATION FOR HOSPITALIZATION: The patient overdosed on medications and got confused, 911 had to be called. Concerns for suicide effort. HISTORY OF PRESENT ILLNESS: A 78-year-old pleasant female has long history of depression, apparently was having conflicts with daughter, got really upset, hopeless, despairing, overtook medications, concerns it was a suicide effort. The patient was pretty remorseful, tearful, upset, feeling helpless about her relationship with daughter. PAST PSYCHIATRIC HISTORY: No suicide attempts. Long history of depression, being on Effexor. SOCIAL HISTORY: . Living with . She does have a son and daughter. No drugs. PROVISIONAL DIAGNOSES: Major depression, recurrent, severe, no psychosis. MEDICAL: Please see full H and P. HOSPITAL COURSE: After initial assessment, the patient was started on medication, Effexor. Over the course of treatment, she began to improve, going to groups, somewhat more sociable common days, good family support with normalization of sleep and appetite, ongoing tensions with daughter and plans to follow up with a therapist and a psychiatrist for ongoing support. Staff noting improvement better compliance. CONDITION UPON DISCHARGE: Improved, good ADLs. Fair eye contact. Mood "better." Affect constricted. Thought processes were linear. No SI, no HI. No psychosis. Insight and judgment are improved. PROVISIONAL DIAGNOSES: Major depression, recurrent, severe, no psychosis. PROGNOSIS: The patient follows up with outpatient mental health services and remains compliant with treatment. Prognosis will improve, otherwise guarded. [facility]# [id number]
== END 2018-10-05 13:25 | disposition home or self-care (01) | DRG 885 ==
LOC: GERO 13:10
PROVIDERS: ADMIT Psychiatry & Neurology Psychiatry; ATTEND Psychiatry & Neurology Psychiatry
DX: F33.2 Major depressive disorder, recurrent severe without psychotic features (principal); I25.10 Atherosclerotic heart disease of native coronary artery without angina pectoris; E78.5 Hyperlipidemia, unspecified; I10 Essential (primary) hypertension; K21.9 Gastro-esophageal reflux disease without esophagitis; F10.129 Alcohol abuse with intoxication, unspecified; I25.2 Old myocardial infarction; Z87.891 Personal history of nicotine dependence
CPT/HCPCS: 36415-UA; 71045-TC; 80053-TC; 80061-TC; 83036-90; 85025-TC; 86592-TC; 93005; G0410; Z7610